=== PATIENT | male | born 1945 | race Asian ===

== ENCOUNTER 2018-02-08 13:28 | Inpatient (IN) | payer MEDICARE ==
[~2018-02-08] VITALS: Ht 170.2 cm; Wt 72.0 kg
[2018-02-08] MEDS ORDERED: ALTEPLASE 1 MG/ML ONE (14:22)
[2018-02-08 14:23] LABS: BASOPHILS # (AUTO) 0.03 x10^3/uL (0-0.1); BASOPHILS % (AUTO) 1 % (0-1); EOSINOPHILS # (AUTO) 0.24 x10^3/uL (0-0.4); EOSINOPHILS % (AUTO) 5 % (1-7); LYMPHOCYTES # (AUTO) 1.42 x10^3/uL (1-3.4); LYMPHOCYTES % (AUTO) 26 % (22-44); MD NO; MEAN CORPUSCULAR HEMOGLOBIN 28.9 pg (27.5-34.5); MEAN CORPUSCULAR HGB CONC 34.2 g/dL (33.2-36.2); MEAN CORPUSCULAR VOLUME 84.6 fL (81-97); MEAN PLATELET VOLUME 11.2 fL (7.4-10.4); MONOCYTES # (AUTO) 0.34 x10^3/uL (0.2-0.8); MONOCYTES % (AUTO) 6 % (2-9); NEUTROPHILS # (AUTO) 3.42 x10^3/uL (1.8-6.8); NEUTROPHILS % (AUTO) 63 % (42-75); PLATELET COUNT 189 x10^3/uL (130-400); RED BLOOD COUNT 5.23 x10^6/uL (4.38-5.82); RED CELL DISTRIBUTION WIDTH 13.7 % (9.4-14.8)
[2018-02-08] MEDS ORDERED: OMNIPAQUE 350 MG/ML, 100ML BOTTLE ONE (14:23)
[2018-02-08 14:33] LABS: INTERNATIONAL NORMALIZED RATIO 1.07 (0.93-1.1)
[2018-02-08] MEDS ORDERED: PLEASE ENTER ALLERGIES MC SCH (15:00)
[2018-02-08] MEDS ORDERED: ASPIRIN 325 MG TABLET PO ONE (15:00)
[2018-02-08] MEDS ORDERED: SODIUM CHLORIDE 0.9%, 500ML IVBOLUS ONE (15:00)
[2018-02-08] MEDS ORDERED: PLEASE ENTER HEIGHT AND WEIGHT MC SCH (15:00)
[2018-02-08 15:55] VITALS: BP 168/95
[2018-02-08] MEDS ORDERED: ENALAPRILAT 1.25 MG/ML, 2ML IVPush PRN (16:00)
[2018-02-08] MEDS ORDERED: POTASSIUM CHLORIDE 40 MEQ in SODIUM CHLORIDE 0.9% 500 ML IV ONE (16:00)
[2018-02-08] MEDS ORDERED: ONDANSETRON 2MG/ML, 2ML IVPush PRN (16:00)
[2018-02-08] MEDS ORDERED: morphine SULFATE 10 MG/ML, 1ML IVPush PRN (16:00)
[2018-02-08 16:21] LABS: FREE T4 (FREE THYROXINE) 0.91 ng/dL (0.76-1.46); THYROID STIMULATING HORMONE 2.04 mIU/L (0.358-3.740)
[2018-02-08 17:32] LABS: MICROSCOPIC NOT IND
[2018-02-08 17:41] LABS: CULTURE INDICATED? NO
[2018-02-08] MEDS: SODIUM CHLORIDE 0.9% 1,000 ML IV SCH ×2 (17:56→23:41)
[2018-02-08] MEDS ORDERED: CLOPIDOGREL 75 MG TABLET PO ONE (18:00)
[2018-02-08 19:56] VITALS: BP 159/85
[2018-02-08] MEDS ORDERED: ASPI-515 PO (20:14)
[2018-02-08] MEDS: ATORVASTATIN 40 MG TABLET PO SCH (21:32)
[2018-02-08] MEDS ORDERED: AMLO5TAB2 PO (22:26)
[2018-02-08] MEDS ORDERED: CARV-39 PO (22:26)
[2018-02-09 02:10] VITALS: BP 159/85
[2018-02-09 05:56] LABS: ALBUMIN 3.2 g/dL (3.4-5.0); ANION GAP 7 mmol/L (5-15); CALCIUM 8.4 mg/dL (8.5-10.1); CHLORIDE 110 mmol/L (98-107)
[2018-02-09 06:01] LABS: BASOPHILS # (AUTO) 0.03 x10^3/uL (0-0.1); BASOPHILS % (AUTO) 0 % (0-1); EOSINOPHILS # (AUTO) 0.28 x10^3/uL (0-0.4); EOSINOPHILS % (AUTO) 4 % (1-7); LYMPHOCYTES # (AUTO) 1.86 x10^3/uL (1-3.4); LYMPHOCYTES % (AUTO) 23 % (22-44); MD NO; MEAN CORPUSCULAR HEMOGLOBIN 29.1 pg (27.5-34.5); MEAN CORPUSCULAR HGB CONC 34.2 g/dL (33.2-36.2); MEAN CORPUSCULAR VOLUME 84.9 fL (81-97); MONOCYTES # (AUTO) 0.53 x10^3/uL (0.2-0.8); MONOCYTES % (AUTO) 7 % (2-9); NEUTROPHILS # (AUTO) 5.53 x10^3/uL (1.8-6.8); NEUTROPHILS % (AUTO) 67 % (42-75); PLATELET COUNT 196 x10^3/uL (130-400); RED BLOOD COUNT 5.13 x10^6/uL (4.38-5.82)
[2018-02-09 06:02] LABS: ALANINE AMINOTRANSFERASE 24 U/L (12-78); ALKALINE PHOSPHATASE 78 U/L (45-117); BILIRUBIN,TOTAL 0.6 mg/dL (0.2-1.0); CHOLESTEROL, TOTAL 185 mg/dL (140-239); HDL CHOL % 17 % (26-37); HDL CHOLESTEROL (DIRECT) 31 mg/dL (40-60); TOTAL PROTEIN 6.6 g/dL (6.4-8.2); TRIGLYCERIDES 435 mg/dL (50-200)
[2018-02-09] MEDS: SODIUM CHLORIDE 0.9% 1,000 ML IV SCH (06:19)
[2018-02-09 07:00] VITALS: BP 171/88
[2018-02-09] MEDS: CLOPIDOGREL 75 MG TABLET PO SCH (09:08)
[2018-02-09] MEDS: ASPIRIN 81 MG TABLET EC PO SCH (09:12)
[2018-02-09] MEDS ORDERED: GADOBUTROL 7.5 MMOL/7.5 ML PFS ONE (09:46)
[2018-02-09 13:35] VITALS: BP 158/88
[2018-02-09] MEDS ORDERED: ENOXAPARIN 40 MG/0.4 ML SQ SCH (16:00)
[2018-02-09] MEDS ORDERED: FUROSEMIDE 40 MG/4 ML IV ONE (17:00)
[2018-02-09 20:00] VITALS: BP 142/87
[2018-02-09] MEDS: ATORVASTATIN 40 MG TABLET PO SCH (20:35)
[2018-02-09 22:23] VITALS: BP 174/93
[2018-02-09 23:00] VITALS: BP 162/81
[2018-02-10 00:18] VITALS: BP 144/76
[2018-02-10 05:11] LABS: ANION GAP 9 mmol/L (5-15); CALCIUM 8.7 mg/dL (8.5-10.1); CHLORIDE 105 mmol/L (98-107); CREATININE 1.59 mg/dL (0.7-1.3)
[2018-02-10] MEDS: ASPIRIN 81 MG TABLET EC PO SCH (06:02)
[2018-02-10 06:03] VITALS: BP 114/69
[2018-02-10 07:07] VITALS: BP 133/76
[2018-02-10] MEDS: CLOPIDOGREL 75 MG TABLET PO SCH (08:29)
[2018-02-10 12:37] VITALS: BP 116/72
[2018-02-10] MEDS ORDERED: ATOR40TA78 PO (13:36)
[2018-02-10] MEDS ORDERED: LISI5TAB7 PO (13:36)
[2018-02-10] MEDS ORDERED: CARV3.1212 PO (13:36)
[2018-02-10] MEDS ORDERED: CLOP75TA PO (13:36)
[2018-02-10] MEDS ORDERED: SPIR25TA PO ×2 (15:34→16:48)
== END 2018-02-10 17:30 | disposition home or self-care (01) | DRG 66 ==
LOC: ED 14:47 → 4EST 14:48 → ED 14:52 → SUATTDRO 15:06 → DCLOUNGE 02-10 16:44
PROVIDERS: ADMIT Hospitalist; ATTEND Hospitalist
DX: I63.9 Cerebral infarction, unspecified (principal); I10 Essential (primary) hypertension; E87.6 Hypokalemia; I25.10 Atherosclerotic heart disease of native coronary artery without angina pectoris; I34.0 Nonrheumatic mitral (valve) insufficiency; I35.1 Nonrheumatic aortic (valve) insufficiency; I37.1 Nonrheumatic pulmonary valve insufficiency; I73.9 Peripheral vascular disease, unspecified; Z82.49 Family history of ischemic heart disease and other diseases of the circulatory system; Z95.1 Presence of aortocoronary bypass graft; Z86.73 Personal history of transient ischemic attack (TIA), and cerebral infarction without residual deficits; Z90.2 Acquired absence of lung [part of]; Z79.82 Long term (current) use of aspirin; Z95.5 Presence of coronary angioplasty implant and graft; Z83.6 Family history of other diseases of the respiratory system; Z80.8 Family history of malignant neoplasm of other organs or systems; Z81.8 Family history of other mental and behavioral disorders; Z82.0 Family history of epilepsy and other diseases of the nervous system; Z83.79 Family history of other diseases of the digestive system; Z83.3 Family history of diabetes mellitus
CPT/HCPCS: 0399T; 36415; 70450; 70496; 70498; 70553; 80047; 80048; 80053; 80061; 81003; 82962; 83735; 84100; 84439; 84443; 85025; 85610; 85730; 93005; 93306; 99291; A9585; J1650; J1940; J3480; Q9967; 92523-GN; J7030; J7040